=== PATIENT | female | born 1970 | race Hispanic/Latino ===

== ENCOUNTER 2017-10-16 23:31 | Emergency (ER) | payer SELFPAY ==
[2017-10-17] MEDS ORDERED: GUAIFENESIN-DM 200/20 MG 10 ML ONE (01:54)
== END 2017-10-17 02:45 | disposition home or self-care (01) ==
LOC: EDH 23:31
DX: J20.9 Acute bronchitis, unspecified (principal); M79.1 Myalgia; E11.9 Type 2 diabetes mellitus without complications; E78.5 Hyperlipidemia, unspecified
CPT/HCPCS: 71045; 87804

== ENCOUNTER 2018-12-31 00:31 | Emergency (ER) | payer SELFPAY | END 2018-12-31 00:53 | disposition home or self-care (01) | LOC: EDH 00:31 | DX: B86 Scabies (principal); E11.9 Type 2 diabetes mellitus without complications; E78.5 Hyperlipidemia, unspecified; Z90.710 Acquired absence of both cervix and uterus ==